=== PATIENT | female | born 1980 ===

== ENCOUNTER 2017-08-13 06:41 | Day surgery (SDC) | payer MEDICAID ==
[2017-08-12 13:29] VITALS: BMI 30.9
[2017-08-13] MEDS ORDERED: Lactated Ringer's 1,000 ML IV ONE (08:00)
[2017-08-13] MEDS ORDERED: Propofol 10 mg/ml Inj (20 ML) ONE (08:04)
[2017-08-13] MEDS ORDERED: Phenylephrine 10 mg/ml Inj ONE (08:05)
[2017-08-13] MEDS ORDERED: ePHEDrine 50 mg/ml Inj ONE (08:05)
[2017-08-13] MEDS ORDERED: Rocuronium 10 mg/ml (5 ml) ONE (08:05)
[2017-08-13] MEDS ORDERED: Midazolam 2 MG/2 ML VIAL ONE (08:05)
[2017-08-13] MEDS ORDERED: Succinylcholine 200 mg/10 ml Inj IV ONE (08:05)
[2017-08-13] MEDS ORDERED: Sevoflurane - Inhalation Anesthetic Liq (250 ml) ONE (08:13)
[2017-08-13 08:21] VITALS: RESP 18
[2017-08-13] MEDS ORDERED: Silver Nitrate Topical - Stick ONE (08:34)
[2017-08-13] MEDS ORDERED: Strong Iodine Topical Sol. 5%-10% ONE (08:34)
[2017-08-13] MEDS ORDERED: Ferric Subsulfate Sol(60 mL) ONE (08:34)
[2017-08-13 08:50] LABS: HEMOGLOBIN 14.1 g/dL (12.0-16.0); MEAN CELL VOLUME 87.3 fl (81.0-99.0); MEAN CORPUSCULAR HEMOGLOBIN 29.8 pg (27.0-31.0); MEAN CORPUSCULAR HGB CONC 34.1 g/dL (33.0-37.0); RBC 4.75 Mil/uL (3.80-5.20); RED CELL DISTRIBUTION WIDTH 12.7 % (11.5-14.5); WHITE BLOOD COUNT 5.4 K/uL (4.8-10.8)
[2017-08-13] MEDS ORDERED: Bupivacaine HCl 0.25% PF (30 ml) Inj ONE (09:44)
[2017-08-13] MEDS ORDERED: Dexamethasone 4 mg/1 ml ONE (09:50)
[2017-08-13] MEDS ORDERED: DiphenhydrAMINE 50 mg/ml Inj ONE (09:50)
[2017-08-13] MEDS ORDERED: Bupivacaine HCl 0.25% PF (30 ml) Inj IJ ONE (09:52)
[2017-08-13] MEDS ORDERED: Liquid Adhesive TOP ONE (10:02)
[2017-08-13] MEDS ORDERED: cefTRIAXone (Rocephin) 1 gm Inj ONE (10:09)
[2017-08-13] MEDS ORDERED: cefTRIAXone (Rocephin) 1 gm Inj IVPB ONE (10:14)
--- NOTE | 2017-08-13 10:47 | PCM.OP ---
Operative Report - Operative Report Date of Surgery/Procedure: 08/13/17 Time of Surgery/Procedure: 10:40 Surgeon: Mathew Stafford MD Ground Operations Superintendent: Reynaldo ALFARO Anesthesia/Sedation: Gen with ET tube Pre-Operative Diagnosis: Chronic pelvic pain. Severe chronic dysparunia. VAginal mesh erosion. Abdominal incision Granuloma Post-Operative Diagnosis: Chronic pelvic pain. Severe chronic dysparunia. VAginal mesh erosion. Abdominal incision Granuloma Indication for Surgery: Patient underwent a midurethral sling [place] ago [place] [facility] [place] Stress urinrary incontinece. Since the procedure she developoed severe vaginal and pelvic pain, severe dysparunia and reccurent vaginal infections. On exam, an erosion of mesh was noted over the urethral neck and on the left side. The mesh erosion surface was approx 1 cm in diameter. One of the incisions on the right upper quadrant from her recent robotic hysterectomy completed on mid July 2017 opened up and appreared possible infefected. On exam, an infected granuloma was noted with no deep involvement of fascia or peritoneum. Decision was made to debrid the wound and reapproximate the incision edges. Operative Findings: Mesh erosion over midurethtra and on the left aspect of the mesh sling. Right upper quadrant infected granuloma debrided and reapproximated. normal bladder anatomy and normal urethral anatomy as per diagnostic cystoscopy at the end of the procedure. Procedure/Operation Description: Excision of vaginal mesh. Repair of anterior vaginal wall. Excision of abdominal incision granuloma (infected). Diagnostic cystoscopy Estimated Blood Loss: 10 Blood Replaced: none Sponge/Instrument Count: count correct times 2 Drains: none Complications: none Specimen: infected granuloma. vaginal sling mesh fragements. anterior vaginal wall Discharge & Condition: discharge as per criteria
[2017-08-13] MEDS ORDERED: Oxycodone/Acetaminophen 5/325 mg Tab PO PRN (10:52)
[2017-08-13] MEDS ORDERED: Lactated Ringer's 1,000 ML IV SCH (11:00)
[2017-08-13 14:08] VITALS: BP 126/82; PULSE 92; TEMP 97.6; O2SAT 97
== END 2017-08-13 14:35 | disposition home or self-care (01) ==
LOC: H.OPSURG 06:41
PROVIDERS: ATTEND Obstetrics & Gynecology
DX: T83.711A Erosion of implanted vaginal mesh to surrounding organ or tissue, initial encounter (principal); R10.2 Pelvic and perineal pain; N94.19 Other specified dyspareunia; Y76.2 Prosthetic and other implants, materials and accessory obstetric and gynecological devices associated with adverse incidents; G89.29 Other chronic pain
CPT/HCPCS: 36415; 57295; 85027; 86850; 86900; 87070; 88304; 88305; J0330; J0690; J0696; J1100; J1200; J1885; J2001; J2250; J2370; J2704; J2765; J3010; J7120